=== PATIENT | female | born 1975 | race Caucasian/White ===

== ENCOUNTER 2025-04-09 21:46 | Emergency (ER) | payer OTHER ==
[2025-04-09] MEDS ORDERED: Acetaminophen 500 MG TAB ONE ×2 (22:24→22:26)
[2025-04-09] MEDS ORDERED: Ibuprofen 800 MG TAB ONE (22:25)
[2025-04-09] MEDS ORDERED: cefTRIAXone (ROCEPHIN) 1 GM VIAL ONE (23:35)
[2025-04-09] MEDS ORDERED: Azithromycin 250 MG TAB ONE (23:35)
== END 2025-04-09 23:59 | disposition home or self-care (01) ==
LOC: NAV ERS 21:46
DX: J18.9 Pneumonia, unspecified organism (principal)
CPT/HCPCS: 71046; 87428; 96372; J0696